=== PATIENT | female | born 1965 | race Caucasian/White ===

== ENCOUNTER 2022-11-27 12:31 | Outpatient (CLI) | payer OTHER, SELFPAY ==
--- NOTE | 2022-11-29 10:08 | WPDNEUROLOGY ---
Neurology EEG Report General Information Date of Study: 11/27/22 TEST EEG DIAGNOSIS cerebral aneurysm CONDITION OF RECORDING awake drowsy and sleep EEG NUMBER [id number] CLINICAL HISTORY patient has history of clipped aneurysm and needing a knee surgery followed with blood thinners. EEG DESCRIPTION basic resting occipital frequency consists of low to medium voltage 9 to 11 hertz per 2nd alpha. Low-voltage beta activity seen diffusely during drowsiness admixed with waxing and waning posterior alpha rhythm. Bilateral symmetrical sleep activity seen during sleep. Hyperventilation not done. Photic stimulation produced normal drive. IMPRESSION Normal record
== END 2022-11-27 12:32 | disposition home or self-care (01) ==
LOC: ANHNEURO 12:33
PROVIDERS: PCP Internal Medicine Infectious Disease; Visit Provider Psychiatry & Neurology Neurology
DX: I67.1 Cerebral aneurysm, nonruptured (principal)
CPT/HCPCS: 95816

== ENCOUNTER 2022-11-30 07:11 | Outpatient (CLI) | payer OTHER, SELFPAY ==
--- NOTE | ~2022-11-30 | CT_ITS ---
Non-contrast Head CT History: Aneurysm Technique: Axial non-contrast imaging of the brain was performed. Dose reduction technique was used on this scan by utilizing automated exposure control and iterative reconstruction technique. The dose -length product (DLP) was 605.33 mGy-cm. Findings: There is no evidence of intracranial hemorrhage, mass lesion, or acute infarct. Aneurysm c lips or coils are present at the anterior right [place] region.. The ventricles and subarac hnoid spaces are normal in size. Right frontal craniotomy noted. The visualized paranasal sinuses an d mastoid air cells are clear. Impression: No acute abnormality seen. Aneurysm clips or coils at the anterior right [place] region. Correlate with prior procedura l history. Reviewed, dictated and finalized at [facility]. 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 Aneurysm clips or coils at the anterior right [place] region. Correlat e with prior procedural history.
== END 2022-11-30 07:12 | disposition home or self-care (01) ==
PROVIDERS: PCP Internal Medicine Infectious Disease; Visit Provider Psychiatry & Neurology Neurology
DX: I67.1 Cerebral aneurysm, nonruptured (principal)
CPT/HCPCS: 70450

== ENCOUNTER 2024-09-29 09:34 | Outpatient (CLI) | payer OTHER, SELFPAY ==
--- NOTE | ~2024-09-29 | MMUS_ITS ---
EXAMINATION: MM diagnostic jing BI w guy, US breast BI complete HISTORY: Possible mass TECHNIQUE: 3-D tomosynthesis images of the breasts were performed and synthetic 2-D images were gener ated. CAD analysis was submitted and interpreted. High resolution complete bilateral breast ultrasoun d was performed. COMPARISON: 05/05/2024 BREAST PARENCHYMAL COMPOSITION:Not Dense. The breasts are almost entirely fatty FINDINGS: MAMMOGRAPHIC FINDINGS: Mammographic pattern of the breasts is unchanged. No mass lesion or distortion seen in either breast. No suspicious microcalcifications. ULTRASOUND: Sonographic imaging of both breasts demonstrates no solid or cystic lesion. No sonographic abnormalit y identified in either breast. IMPRESSION: No evidence for malignancy. No mass lesion seen. BI-RADS Category 1: Negative Reviewed, dictated and finalized at [facility]. IMPRESSION: No evidence for malignancy. No mass lesion seen. BI-RADS Category 1: Negative
== END 2024-09-29 09:35 | disposition home or self-care (01) ==
PROVIDERS: PCP Internal Medicine Infectious Disease; Visit Provider Surgery
DX: R92.8 Other abnormal and inconclusive findings on diagnostic imaging of breast (principal)
CPT/HCPCS: 76641; 77062; 77066; G0279

== ENCOUNTER 2024-12-14 17:37 | Emergency (ER) | payer OTHER, SELFPAY ==
--- NOTE | ~2024-12-14 | XR_ITS ---
CHEST RADIOGRAPH, PA AND LATERAL CLINICAL HISTORY: cough, wheezing . COMPARISON: 07/04/2009 TECHNIQUE: PA and lateral views of the chest. FINDINGS Hiatal hernia (versus left atrial enlargement within the retrocardiac region) for which cross-section al imaging would provide additional information, if the patient is clinically able. The remainder of the lungs are otherwise clear. IMPRESSION: Left atrial enlargement, without focal infiltrate or effusion. Hiatal hernia (versus left atrial enlargement within the retrocardiac region) for which cross-section al imaging would provide additional information, if the patient is clinically able. Reviewed, dictated and finalized at [facility] ER MACHINE IMPRESSION: Left atrial enlargement, without focal infiltrate or effusion. Hiatal hernia (versus left atrial enlargement within the retrocardiac region) f or which cross-sectional imaging would provide additional information, if the p atient is clinically able.
[2024-12-14 17:49] VITALS: BP 139/79; PULSE 88; RESP 22; TEMP 37.7; O2SAT 100
--- NOTE | 2024-12-14 17:50 | ED.URI ---
HPI - URI/Sore Throat General Chief Complaint: Upper Respiratory Infection Stated Complaint: Diarrhea/SOB Time Seen by Provider: 12/14/24 17:40 Source: patient Mode of arrival: ambulatory Limitations: no limitations History of Present Illness HPI Narrative: Patient is a 59-year-old female who presents with 4 days of cough, shortness of breath on exertion, intermittent abdominal pain, diarrhea and body aches. Patient took at home flu and COVID tests and they were both negative. Denies any fever, chills, nausea, vomiting. Patient has history of asthma and bronchitis. Has been taking [id number] medication with no relief. Related Data Home Medications ?Medication ?Instructions ?Recorded ?Confirmed ?Last Taken ?Type albuterol sulfate 90 mcg/actuation 1 puff inhalation Q4H PRN 11/16/22 Unknown History aerosol inhaler amlodipine 10 mg tablet 10 mg PO DAILY 11/16/22 Unknown History bictegravir 30 mg-emtricitabine 1 tablet PO DAILY 11/16/22 Unknown History 120 mg-tenofovir alafenam 15 mg tablet (Biktarvy) bupropion HCl 300 mg 24 hr tablet, 300 mg PO DAILY 11/16/22 Unknown History extended release clonazepam 2 mg tablet 1 mg PO TID 11/16/22 Unknown History fluoxetine 40 mg capsule 40 mg PO DAILY 11/16/22 Unknown History hydrochlorothiazide 25 mg tablet 25 mg PO DAILY 11/16/22 Unknown History lansoprazole 30 mg capsule,delayed 30 mg PO DAILY 11/16/22 Unknown History release losartan 50 mg tablet 50 mg PO DAILY 11/16/22 Unknown History rosuvastatin 20 mg tablet 20 mg PO DAILY 11/16/22 Unknown History trazodone 150 mg tablet 150 mg PO QHS 11/16/22 Unknown History Allergies Allergy/AdvReac Type Severity Reaction Status Date / Time No Known Allergies Allergy Unverified 10/13/24 11:25 Review of Systems Review of Systems: All systems reviewed & are unremarkable except as noted in HPI and below Constitutional: Constitutional: Reports body ache(s), Denies chills, Reports fatigue, Denies fever(s), Reports headache(s), Denies malaise and Denies weakness Eyes: Eyes: Denies blurry vision, Denies itchy eyes and Denies loss of vision ENT: Denies otalgia, Reports headache(s), Reports nasal congestion, Denies sinus pain and Denies sore throat Cardiovascular: Cardiovascular: Denies chest pain, Denies irregular heart rhythm and Denies dyspnea Respiratory: Respiratory: Reports cough and Denies dyspnea Gastrointestinal: Gastrointestinal: Denies abdominal pain, Denies diarrhea, Denies nausea and Denies vomiting Musculoskeletal: Musculoskeletal: Denies back pain, Denies myalgias and Denies arthralgias Integumentary/Breasts: Skin/Breast: Denies pruritus and Denies rash Neurologic: Denies headache(s), Denies loss of vision and Denies weakness Psychiatric: Psychiatric: Reports no additional psychiatric complaints Endocrine: Endocrine: Denies fatigue Allergic/Immunologic: Allergic/Immunologic: Denies itchy eyes PMFSH Past Medical History Medical History HIV (human immunodeficiency virus infection) Colostomy in place Brain aneurysm Diverticulitis Headache GERD (gastroesophageal reflux disease) Arthritis Anxiety Surgical History Surgical History H/O brain surgery History of surgery on arm Family History Family History Other Anxiety Cerebrovascular accident Depression Rectal cancer Social History Social History Smoking status: Unknown if ever smoked Alcohol intake: current Substance use: current Substance use type: marijuana Do You Feel Safe in your Home?: Yes Lack of Transportation: YES Lack of Food: Sometimes True Current Housing: I Have Housing Concerned About Future Housing: No Difficulty Paying Gas/Electric Bills: No Difficulty Paying for Meds: No Currently Unemployed: No Education: Trade/Vocational Certificate Difficulty w/ Childcare or Family Care: No Comments At time of signature, agree with nursing past medical, surgical, social and family history. There is no relevant family history pertinent to the presenting complaint. Exam Const: General: cooperative, healthy appearing, comfortable, no acute distress and well nourished Nutritional Appearance: well nourished Orientation/consciousness: patient oriented x3 Limitations: no limitations HENMT: Head: normal to inspection, normocephalic and atraumatic Ears: hearing grossly normal bilaterally, external ears normal, TM's normal bilaterally, EAC's normal and no periauricular adenopathy Face/Nose/Sinus: Normal external nose present, Normal nasal mucous membranes and turbinates present, normal facial exam, sinuses nontender and face symmetric Face and sinus: normal facial exam, sinuses nontender and face symmetric Mouth: Yes Normal oral and palatal mucosa present, Yes lip normal, Yes tongue normal, Yes Normal salivary glands and ducts present, Yes oropharynx normal and Yes moist mucous membranes Teeth and gingiva: dentition normal Throat: posterior oropharynx normal, tonsils normal and uvula midline Eyes: General: appearance normal, both eyes and all related structures Alignment and Position: alignment normal and position normal Periorbital: periorbital findings normal Eyelids: eyelids normal Pupils: Equal, round and reactive pupils present Neck: Neck: normal visual inspection, full ROM, no lymphadenopathy and supple Chest: Chest palpation & inspection: normal inspection of the chest and normal palpation of entire chest wall Resp: Effort & Inspection: normal respiratory effort and able to speak in complete sentences Auscultation: no crackles, no rales, rhonchi throughout and no wheezes Cardio: Rate: regular rate Rhythm: regular rhythm Heart sounds: S1 normal heart sound present and S2 normal heart sound present GI: Inspection: normal to inspection Skin: General skin exam: normal color and no rashes or lesions noted Neuro: General: patient oriented x3 and moves all extremities Cranial nerves: Yes Equal, round and reactive pupils present Speech: normal speech Gait exam (Neuro): Normal gait present Extrem: General: normal to inspection, full ROM and no edema Psych: Appearance: grossly normal and well kempt Mental Status: mental status grossly normal Speech and movement: Normal speech and movement present Affect: normal affect Attitude: cooperative Thought process: Normal thought process present Course Course Emergency Course: Discharge instructions reviewed with patient, as well as provided in writing per nursing staff. The instructions also include specific and strict return/GO TO THE ER as well as f/u information. All questions have been answered, and the patient deny any further questions with discharge and discharge plan. Portions of this record may have been created with voice recognition software Level of Care: Express Care Visit Vital Signs Vital signs: Reviewed MDM - URI/Sore Throat MDM Narrative Medical decision making narrative: Discussed x-ray results with patient. Patient to follow-up with primary for additional imaging. Pt well hydrated appearing, in no respiratory distress, hemodynamically stable. Recommend supportive care. The patient is stable at time of discharge the clinical impression was discussed and the patient was given the opportunity to ask questions, which were addressed as completely as possible given the information available at present. Anticipatory guidance and return to care precautions were discussed and the importance of primary care follow-up was stressed and encouraged. The patient voiced understanding of the plan, indications to return, and the need for follow-up. Differential diagnosis considered: Pascual virus, strep pharyngitis, allergic rhinitis, upper respiratory tract infection, sinusitis, rhinosinusitis, nasopharyngitis. viral pharyngitis, otitis media, otitis externa, otitis effusion, foreign body, cerumen impaction, viral syndrome, and influenza.? Exam findings show no acute concerns or changes; patient is non-toxic appearing and is in no distress.? Patient is appropriate for outpatient treatment and follow-up.? Medical Records Attestation: I reviewed the patient's medical records. Imaging Data Radiologist's impression: CHEST RADIOGRAPH, PA AND LATERAL CLINICAL HISTORY: cough, wheezing . COMPARISON: 07/04/2009 TECHNIQUE: PA and lateral views of the chest. FINDINGS Hiatal hernia (versus left atrial enlargement within the retrocardiac region) for which cross-sectional imaging would provide additional information, if the patient is clinically able. The remainder of the lungs are otherwise clear. IMPRESSION: Left atrial enlargement, without focal infiltrate or effusion. Hiatal hernia (versus left atrial enlargement within the retrocardiac region Discharge Plan Discharge Clinical Impression: Acute purulent bronchitis Patient Disposition: Home, Self-Care Condition: Stable Instructions: Antibiotic Form Additional Instructions: X-ray showed no signs of pneumonia. Take antibiotic as prescribed. Take steroids in the morning with food. Use Tessalon Perles as needed for cough. Use inhaler with spacer as needed. Other symptomatic treatments include: -Alternate Tylenol and Motrin per package directions for fever or pain. -Antihistamine medication such as Benadryl at night and Zyrtec/Claritin/Klarissa during the day can help improve symptoms. -Use Flonase twice a day for 5 days then daily to help reduce the inflammation and dry up your sinuses. -You can also use Sudafed or Mucinex. Be sure to drink plenty of water with these medications at least 8 ounces with every dose and it is important to drink 8 to 10 glasses of water per day. Water is a natural decongestant -Eat and drink things that are easy to swallow, like tea or soup, or popsicles. -Oral rinses such as: Salt water gargles and/or may use topical anesthetic (eg. Chloraseptic spray) or lozenges to relieve dryness or throat pain). -Frequent hand washing or hand soa integration developer is one of the best ways to prevent spread of infection. -Using a vaporizer or humidifier at night will also help thin secretions and help with coughing up phlegm. -Follow up with primary care provider in 3-5 days if condition is not improving - For new or worsening symptoms go directly to the nearest ER Patient Language: Romanian Prescriptions: New promethazine-DM 6.25-15 mg/5 mL syrup 5 ml PO Q4-6H PRN (Reason: cough) Qty: 118 0RF prednisone 20 mg tablet 40 mg PO DAILY 5 Days Qty: 10 0RF amoxicillin 875 mg tablet 875 mg PO Q12H 7 Days Qty: 14 0RF albuterol sulfate 90 mcg/actuation HFA aerosol inhaler 2 puff inhalation QID PRN (Reason: shortness of breath or wheezing) Qty: 6.7 0RF (DME) Aerochamber MV Spacer See Rx Instructions .Route Qty: 1 0RF Rx Instructions: As directed No Action clonazepam 2 mg tablet 1 mg PO TID trazodone 150 mg tablet 150 mg PO QHS fluoxetine 40 mg capsule 40 mg PO DAILY bupropion HCl 300 mg tablet extended release 24 hr 300 mg PO DAILY losartan 50 mg tablet 50 mg PO DAILY Biktarvy 30-120-15 mg tablet 1 tablet PO DAILY amlodipine 10 mg tablet 10 mg PO DAILY rosuvastatin 20 mg tablet 20 mg PO DAILY lansoprazole 30 mg capsule,delayed release(DR/EC) 30 mg PO DAILY hydrochlorothiazide 25 mg tablet 25 mg PO DAILY albuterol sulfate 90 mcg/actuation HFA aerosol inhaler 1 puff inhalation Q4H PRN Follow-up/Referrals: Sonia,Bong Marie [Primary Care Provider] - 3 Days Stand Alone Forms: Work/School Release IP Time of Disposition: 19:01
[2024-12-14] MEDS: IPRATROPIUM 0.5 MG/ALBUTEROL SULFATE 2.5 MG AMPUL.NEB 3 ML INHALATION (18:21)
== END 2024-12-14 19:15 | disposition home or self-care (01) ==
PROVIDERS: Emergency Provider Nurse Practitioner Family; PCP Internal Medicine Infectious Disease
DX: J20.9 Acute bronchitis, unspecified (principal); Z21 Asymptomatic human immunodeficiency virus [HIV] infection status; K21.9 Gastro-esophageal reflux disease without esophagitis; M19.90 Unspecified osteoarthritis, unspecified site; J45.909 Unspecified asthma, uncomplicated
CPT/HCPCS: 71046; 94640; 99213; G0463

== ENCOUNTER 2025-03-22 13:59 | Emergency (ER) | payer OTHER, SELFPAY ==
--- NOTE | 2025-03-22 14:03 | ED.URI ---
HPI - URI/Sore Throat General Chief Complaint: Upper Respiratory Infection Stated Complaint: Cough/Wheezing Time Seen by Provider: 03/22/25 14:21 Source: patient and RN notes reviewed Mode of arrival: ambulatory Limitations: no limitations History of Present Illness HPI Narrative: 59-year-old female presents with concern for 9 day history of cough, wheezing. Reports the cough is productive. Reports that worsens overnight. Reports she feels sweats at night has been taking Tylenol. She has been using her albuterol about 3 times daily. MD elicited complaint: cough Related Data Home Medications ?Medication ?Instructions ?Recorded ?Confirmed ?Last Taken ?Type albuterol sulfate 90 mcg/actuation 1 puff inhalation Q4H PRN 11/16/22 Unknown History aerosol inhaler amlodipine 10 mg tablet 10 mg PO DAILY 11/16/22 Unknown History bictegravir 30 mg-emtricitabine 1 tablet PO DAILY 11/16/22 Unknown History 120 mg-tenofovir alafenam 15 mg tablet (Biktarvy) bupropion HCl 300 mg 24 hr tablet, 300 mg PO DAILY 11/16/22 Unknown History extended release clonazepam 2 mg tablet 1 mg PO TID 11/16/22 Unknown History fluoxetine 40 mg capsule 40 mg PO DAILY 11/16/22 Unknown History hydrochlorothiazide 25 mg tablet 25 mg PO DAILY 11/16/22 Unknown History lansoprazole 30 mg capsule,delayed 30 mg PO DAILY 11/16/22 Unknown History release losartan 50 mg tablet 50 mg PO DAILY 11/16/22 Unknown History rosuvastatin 20 mg tablet 20 mg PO DAILY 11/16/22 Unknown History trazodone 150 mg tablet 150 mg PO QHS 11/16/22 Unknown History Allergies Allergy/AdvReac Type Severity Reaction Status Date / Time No Known Allergies Allergy Unverified 10/13/24 11:25 Review of Systems Review of Systems: CONSTITUTIONAL: Reports malaise, chills, sweats EYES: Denies visual changes, redness, or discharge. ENT: Reports rhinorrhea, congestion. Denies sinus pain, otalgia and sore throat. CARDIOVASCULAR: Denies chest pain, palpitations, or edema. RESPIRATORY: Reports productive cough, wheezing, dyspnea. GASTROINTESTINAL: Denies abdominal pain, nausea, vomiting, diarrhea SKIN: Denies rash or itching. MUSCULOSKELETAL: Reports myalgia. NEUROLOGIC: Denies headache. All systems reviewed & are unremarkable except as noted in HPI and below PMFSH Past Medical History Medical History HIV (human immunodeficiency virus infection) Colostomy in place Brain aneurysm Diverticulitis Headache GERD (gastroesophageal reflux disease) Arthritis Anxiety Surgical History Surgical History H/O brain surgery History of surgery on arm Family History Family History Other Anxiety Cerebrovascular accident Depression Rectal cancer Social History Social History Smoking status: Unknown if ever smoked Alcohol intake: current Substance use: current Substance use type: marijuana Do You Feel Safe in your Home?: Yes Lack of Transportation: YES Lack of Food: Sometimes True Current Housing: I Have Housing Concerned About Future Housing: No Difficulty Paying Gas/Electric Bills: No Difficulty Paying for Meds: No Currently Unemployed: No Education: Trade/Vocational Certificate Difficulty w/ Childcare or Family Care: No Comments At time of signature, agree with nursing past medical, surgical, social and family history. There is no relevant family history pertinent to the presenting complaint Exam Narrative: GENERAL: Nontoxic-appearing, well-nourished, and in no acute distress. HEAD: Normocephalic EYES: PERRLA, conjunctivae clear ENT: Nares clear. Mucous membranes moist. TM pearly rai with dull light reflex bilaterally; no tragal tenderness. Oropharynx not erythematous without lesions. Tonsils not enlarged and without exudate, no drooling, no hoarseness, no trismus, uvula midline. NECK: Supple. No lymphadenopathy CHEST: Scattered expiratory and expiratory wheeze, breath sounds equal. No rhonchi, rales, or stridor. No respiratory distress, speaks in full sentences. HEART: Regular rate and rhythm. No murmur heard. SKIN: Warm, dry, no rash. NEURO: Alert and oriented x3. PSYCH: Normal mood and affect Course Course Emergency Course: Patient is aware of diagnosis, understands and agrees to treatment plan. Anticipatory guidance given. Patient agrees to follow-up as directed and is aware of reasons to seek care at the emergency department. Portions of this record may have been created with voice recognition software Level of Care: Express Care Visit Vital Signs Vital signs: Reviewed. MDM - URI/Sore Throat MDM Narrative Medical decision making narrative: Differential diagnosis considered: Pascual virus, strep pharyngitis, allergic rhinitis, upper respiratory tract infection, sinusitis, rhinosinusitis, nasopharyngitis. viral pharyngitis, otitis media, otitis externa, pneumonia, bronchitis, viral cough syndrome, viral syndrome, and influenza. Exam findings show no acute concerns or changes; patient is non-toxic appearing and is in no distress. Patient is appropriate for outpatient treatment and follow-up. Lab Data Attestation: I reviewed the patient's lab results. Critical Care Time Critical Care Time Critical Care Time: No Discharge Plan Discharge Clinical Impression: Lower respiratory tract infection Patient Disposition: Home Condition: Stable Instructions: Antibiotic Form, Acute Cough (ED) Additional Instructions: Take medication as prescribed Recommend antihistamine such as Benadryl at night time and Zyrtec or Klarissa during the day Continue to Use your inhaler as needed for cough, wheezing, shortness of breath or chest tightness. Also, recommend symptomatic treatment includes: rest, fluids, and increase humidity of the air at home. Recommend Acetaminophen as directed on the bottle to reduce fever, pain, headache. Avoid smoking/second-hand smoke. Please schedule a follow-up visit with your personal physician for further evaluation and treatment within 3-5days. If your symptoms persist, change or worsen significantly before you can contact your personal physician then please, without delay, go to the emergency department for further evaluation. Patient Language: Polish Prescriptions: New azithromycin [Zithromax Z-Dhiraj] 250 mg tablet See Rx Instructions .ROUTE .COMPLEX Qty: 6 0RF Rx Instructions: take 500 mg today (day 1), then 250 mg for 4 days (days 2-5) methylprednisolone [Medrol (Dhiraj)] 4 mg tablets,dose pack See Rx Instructions .ROUTE .COMPLEX Qty: 21 0RF Rx Instructions: orally per package directions No Action promethazine-DM 6.25-15 mg/5 mL syrup 5 ml PO Q4-6H PRN (Reason: cough) Qty: 118 0RF prednisone 20 mg tablet 40 mg PO DAILY 5 Days Qty: 10 0RF amoxicillin 875 mg tablet 875 mg PO Q12H 7 Days Qty: 14 0RF albuterol sulfate 90 mcg/actuation HFA aerosol inhaler 2 puff inhalation QID PRN (Reason: shortness of breath or wheezing) Qty: 6.7 0RF (DME) Aerochamber MV Spacer See Rx Instructions .Route Qty: 1 0RF Rx Instructions: As directed clonazepam 2 mg tablet 1 mg PO TID trazodone 150 mg tablet 150 mg PO QHS fluoxetine 40 mg capsule 40 mg PO DAILY bupropion HCl 300 mg tablet extended release 24 hr 300 mg PO DAILY losartan 50 mg tablet 50 mg PO DAILY Biktarvy 30-120-15 mg tablet 1 tablet PO DAILY amlodipine 10 mg tablet 10 mg PO DAILY rosuvastatin 20 mg tablet 20 mg PO DAILY lansoprazole 30 mg capsule,delayed release(DR/EC) 30 mg PO DAILY hydrochlorothiazide 25 mg tablet 25 mg PO DAILY albuterol sulfate 90 mcg/actuation HFA aerosol inhaler 1 puff inhalation Q4H PRN Follow-up/Referrals: Jemima,Bong Marie [Primary Care Provider] - Time of Disposition: 14:28
[2025-03-22 14:06] VITALS: BP 130/81; PULSE 77; RESP 19; TEMP 37; O2SAT 97
== END 2025-03-22 14:35 | disposition home or self-care (01) ==
PROVIDERS: Emergency Provider Nurse Practitioner; PCP Internal Medicine Infectious Disease
DX: J22 Unspecified acute lower respiratory infection (principal); B20 Human immunodeficiency virus [HIV] disease; K21.9 Gastro-esophageal reflux disease without esophagitis; M19.90 Unspecified osteoarthritis, unspecified site
CPT/HCPCS: 99213; G0463

== ENCOUNTER 2025-07-12 11:49 | Emergency (ER) | payer OTHER, SELFPAY ==
[2025-07-12 11:57] VITALS: BP 147/82; PULSE 67; RESP 16; TEMP 36.4; O2SAT 95
--- NOTE | 2025-07-12 12:15 | ED_ITS ---
HPI - Skin/Abscess/Foreign Bdy General Chief complaint: Skin/Abscess/Foreign Body Stated complaint: Rash Time Seen by Provider: 07/12/25 12:15 Source: patient, RN notes reviewed and old records reviewed Mode of arrival: ambulatory Limitations: no limitations History of Present Illness HPI narrative: 60-year-old female presents to the [facility] with complaints of a rash. Rash to the left chest area, states it has been there for 6 weeks. Have been trying use Lotrimin, cortisone cream with no relief. Area is skin color. Patient chin reports it is being very itchy. Denies any new creams ointments lotions detergents. Onset (ago): week(s) (6) Treatments prior to arrival: OTC topical medication Related Data Home Medications ?Medication ?Instructions ?Recorded ?Confirmed ?Last Taken ?Type albuterol sulfate 90 mcg/actuation 1 puff inhalation Q4H PRN 11/16/22 Unknown History aerosol inhaler amlodipine 10 mg tablet 10 mg PO DAILY 11/16/22 Unknown History bictegravir 30 mg-emtricitabine 1 tablet PO DAILY 11/16/22 Unknown History 120 mg-tenofovir alafenam 15 mg tablet (Biktarvy) bupropion HCl 300 mg 24 hr tablet, 300 mg PO DAILY 11/16/22 Unknown History extended release clonazepam 2 mg tablet 1 mg PO TID 11/16/22 Unknown History fluoxetine 40 mg capsule 40 mg PO DAILY 11/16/22 Unknown History hydrochlorothiazide 25 mg tablet 25 mg PO DAILY 11/16/22 Unknown History lansoprazole 30 mg capsule,delayed 30 mg PO DAILY 11/16/22 Unknown History release losartan 50 mg tablet 50 mg PO DAILY 11/16/22 Unknown History rosuvastatin 20 mg tablet 20 mg PO DAILY 11/16/22 Unknown History trazodone 150 mg tablet 150 mg PO QHS 11/16/22 Unknown History Allergies Allergy/AdvReac Type Severity Reaction Status Date / Time No Known Allergies Allergy Unverified 07/12/25 12:31 Review of Systems 2 Review of Systems: All systems reviewed & are unremarkable except as noted in HPI and below Constitutional: Constitutional: Reports no additional constitutional complaints ENT: Reports system reviewed and no additional complaints, except as documented Cardiovascular: Cardiovascular: Reports no additional cardiovascular complaints, Denies chest pain and Denies dyspnea Respiratory: Respiratory: Reports no additional respiratory complaints, Denies chest congestion, Denies cough and Denies dyspnea Musculoskeletal: Musculoskeletal: Reports no additional musculoskeletal complaints Integumentary/Breasts: Skin/Breast: Reports rash PMFSH Past Medical History Medical History HIV (human immunodeficiency virus infection) Colostomy in place Brain aneurysm Diverticulitis Headache GERD (gastroesophageal reflux disease) Arthritis Anxiety Surgical History Surgical History H/O brain surgery History of surgery on arm Family History Family History Other Anxiety Cerebrovascular accident Depression Rectal cancer Social History Social History Smoking status: Unknown if ever smoked Alcohol intake: current Substance use: current Substance use type: marijuana Do You Feel Safe in your Home?: Yes Lack of Transportation: YES Lack of Food: Sometimes True Current Housing: I Have Housing Concerned About Future Housing: No Difficulty Paying Gas/Electric Bills: No Difficulty Paying for Meds: No Currently Unemployed: No Education: Trade/Vocational Certificate Difficulty w/ Childcare or Family Care: No Comments At the time of my signature, I reviewed and agree with the nursing past medical, surgical, social, and family history. There is no relevant family history pertinent to the patient complaint. Exam 2 Const: General: cooperative, healthy appearing, comfortable, no acute distress, well developed, alert and well nourished Nutritional Appearance: w ell nourished Orientation/consciousness: patient oriented x3 Limitations: no limitations HENMT: Head: normal to inspection Eyes: General: appearance normal, both eyes and all related structures A lignment and Position: alignment normal Neck: Neck: normal visual inspection, full ROM, no lymphadenopathy and no meningeal signs Chest: Chest palpation & inspection: normal inspection of the chest Resp: Effort & Inspection: normal respiratory effort and able to speak in complete sentences Cardio: Rate: regular rate Skin: General skin exam: normal color and no rashes or lesions noted Full body images: 1. apx 3x3 cm skin colored raised area. No fascicular changes, no erythema. Not warm to touch. Neuro: General: patient oriented x3, gait normal, moves all extremities and no meningeal signs Cognition (Neuro): normal cognition Speech: normal speech Gait exam (Neuro): Normal gait present Extrem: General: normal to inspection, full ROM, capillary refill normal and normal gait Psych: Appearance: grossly normal and well kempt Mental Status: mental status grossly normal Speech and movement: Normal speech and movement present and Clear speech present Affect: normal affect Attitude: cooperative Course Course Level of Care: Express Care Visit Vital Signs Vital signs: Vital Signs Temperature 97.5 F L 07/12/25 11:57 Pulse Rate 67 07/12/25 11:57 Respiratory Rate 16 07/12/25 11:57 Blood Pressure 147/82 H 07/12/25 11:57 Pulse Oximetry 95 07/12/25 11:57 Oxygen Delivery Room Air 07/12/25 11:57 Temperature 97.5 F L 07/12/25 11:57 Pulse Rate 67 07/12/25 11:57 Respiratory Rate 16 07/12/25 11:57 Blood Pressure 147/82 H 07/12/25 11:57 Pulse Oximetry 95 07/12/25 11:57 Oxygen Delivery Room Air 07/12/25 11:57 Reviewed MDM - Skin/Abscess/Foreign Bdy MDM Narrative Medical decision making narrative: Patient sitting in exam room. Patient is nontoxic, vitals stable. Patient presents with a rash to the left chest. Has tried multiple [id number] treatments No cellulitic changes Rash x6 weeks, will attempt triamcinolone, instructed patient to follow-up with primary care provider Patient is appropriate for outpatient treatment with close follow-up Discharge instructions reviewed with patient, as well as provided in writing per nursing staff. The instructions also include specific and strict return/GO TO THE ER as well as f/u information. All questions have been answered, and the patient deny any further questions with discharge and discharge plan. Some parts of this dictation were generated by voice recognition software and may contain typographical and/or grammatical inaccuracies. Differential Diagnosis Differential diagnosis: Likely abscess of skin or subcutaneous tissue, viral exanthem, urticaria, herpes zoster, allergic reaction to drug, cellulitis, eczema, insect bites and contact dermatitis Critical Care Time Critical Care Time Critical Care Time: No Discharge Plan Discharge Clinical Impression: Localized rash Patient Disposition: Home Condition: Stable Instructions: Acute Rash (ED) Additional Instructions: The most important part of your care is follow up with Primary care provider. Today your blood pressure was 147/82 Take Zyrtec or Claritin every day Take Pepcid 20mg daily for 7 days Apply the steroid cream twice daily for 1 week Avoid hot showers, Take cool showers. Hot showers will make rashes worse Apply cool compresses every 2-3 hours for 15 minutes Go to the ER for new or worsening symptoms such as shortness of breath. Patient Language: Japanese Prescriptions: New triamcinolone acetonide 0.1 % cream 1 applic topical BID Qty: 30 0RF No Action prednisone 20 mg tablet 40 mg PO DAILY 5 Days Qty: 10 0RF amoxicillin 875 mg tablet 875 mg PO Q12H 7 Days Qty: 14 0RF albuterol sulfate 90 mcg/actuation HFA aerosol inhaler 2 puff inhalation QID PRN (Reason: shortness of breath or wheezing) Qty: 6.7 0RF (DME) Aerochamber MV Spacer See Rx Instructions .Route Qty: 1 0RF Rx Instructions: As directed clonazepam 2 mg tablet 1 mg PO TID trazodone 150 mg tablet 150 mg PO QHS fluoxetine 40 mg capsule 40 mg PO DAILY bupropion HCl 300 mg tablet extended release 24 hr 300 mg PO DAILY losartan 50 mg tablet 50 mg PO DAILY Biktarvy 30-120-15 mg tablet 1 tablet PO DAILY amlodipine 10 mg tablet 10 mg PO DAILY rosuvastatin 20 mg tablet 20 mg PO DAILY lansoprazole 30 mg capsule,delayed release(DR/EC) 30 mg PO DAILY hydrochlorothiazide 25 mg tablet 25 mg PO DAILY albuterol sulfate 90 mcg/actuation HFA aerosol inhaler 1 puff inhalation Q4H PRN Follow-up/Referrals: Jemima,Bong Marie [Primary Care Provider] - 1 Week ([facility] follow-up) Time of Disposition: 12:30
== END 2025-07-12 12:47 | disposition home or self-care (01) ==
PROVIDERS: Emergency Provider Nurse Practitioner; PCP Internal Medicine Infectious Disease
DX: R21 Rash and other nonspecific skin eruption (principal); F12.90 Cannabis use, unspecified, uncomplicated; Z21 Asymptomatic human immunodeficiency virus [HIV] infection status; I67.1 Cerebral aneurysm, nonruptured; K21.9 Gastro-esophageal reflux disease without esophagitis; M19.90 Unspecified osteoarthritis, unspecified site; F41.9 Anxiety disorder, unspecified
CPT/HCPCS: 99213; G0463

== ENCOUNTER 2025-09-01 16:36 | Emergency (ER) | payer OTHER, SELFPAY ==
--- NOTE | 2025-09-01 16:39 | ED_ITS ---
HPI - Skin/Abscess/Foreign Bdy General Chief complaint: Wound/Laceration Stated complaint: need stiches removed Time Seen by Provider: 09/01/25 16:40 Source: patient Mode of arrival: ambulatory Limitations: no limitations History of Present Illness HPI narrative: Patient is a 60-year-old female presenting for suture removal. Patient had 5 sutures placed 11 days ago at [place] emergency department. Patient was also given Keflex at that time. Patient has had no drainage or issues with sutures Related Data Home Medications ?Medication ?Instructions ?Recorded ?Confirmed ?Last Taken ?Type amlodipine 10 mg tablet 10 mg PO DAILY 11/16/22 Unk nown History bictegravir 30 mg-emtricitabine 1 tablet PO DAILY 11/01 05/23 Unknown History 120 mg-tenofovir alafenam 15 mg tablet (Biktarvy) bupropion HCl 300 mg 24 hr tablet, 300 mg PO DAILY Unknown History extended release clonazepam 2 mg tablet 1 mg PO TID 11/16/22 Unknow n History fluoxetine 40 mg capsule 40 mg PO DAILY 11/16/22 Unk nown History hydrochlorothiazide 25 mg tablet 25 mg PO DAILY Unknown History lansoprazole 30 mg capsule,delayed 30 mg PO DAILY 11/01 05/23 Unknown History release losartan 50 mg tablet 50 mg PO DAILY 11/16/22 Unk nown History rosuvastatin 20 mg tablet 20 mg PO DAILY 11/16/22 Unk nown History trazodone 150 mg tablet 150 mg PO QHS 11/16/22 Unkn own History Allergies Allergy/AdvReac Type Severity Reaction Status Date / Time No Known Allergies Allergy Verified 09/01/25 16:38 Review of Systems 2 Review of Systems: All systems reviewed & are unremarkable except as noted in HPI and below Constitutional: Constitutional: Denies body ache(s), Denies chills, Denies fatigue, Denies fever(s), Denies headache(s), Denies malaise and Denies weakness Eyes: Eyes: Denies blurry vision, Denies irritation and Denies loss of vision ENT: Denies otalgia, Denies headache(s), Denies nasal discharge, Denies sinus pain and Denies sore throat Cardiovascular: Cardiovascular: Denies chest pain, Denies irregular heart rhythm and Denies dyspnea Respiratory: Respiratory: Denies dyspnea Gastrointestinal: Gastrointestinal: Denies abdominal pain, Denies melena, Denies hematochezia, Denies diarrhea, Denies nausea and Denies vomiting Musculoskeletal: Musculoskeletal: Denies back pain, Denies myalgias and Denies arthralgias Integumentary/Breasts: Skin/Breast: Denies pruritus, Denies rash and Reports wounds Neurologic: Denies headache(s), Denies loss of vision and Denies weakness Psychiatric: Psychiatric: Reports no additional psychiatric complaints Endocrine: Endocrine: Denies fatigue PMFSH Past Medical History Medical History HIV (human immunodeficiency virus infection) Colostomy in place Brain aneurysm Diverticulitis Headache GERD (gastroesophageal reflux disease) Arthritis Anxiety Surgical History Surgical History H/O brain surgery History of surgery on arm Family History Family History Other Anxiety Cerebrovascular accident Depression Rectal cancer Social History Social History Smoking status: Unknown if ever smoked Alcohol intake: current Substance use: current Substance use type: marijuana Do You Feel Safe in your Home?: Yes Lack of Transportation: YES Lack of Food: Sometimes True Current Housing: I Have Housing Concerned About Future Housing: No Difficulty Paying Gas/Electric Bills: No Difficulty Paying for Meds: No Currently Unemployed: No Education: Trade/Vocational Certificate Difficulty w/ Childcare or Family Care: No Comments At time of signature, agree with nursing past medical, surgical, social and family history. There is no relevant family history pertinent to the presenting complaint. Exam 2 Const: General: cooperative, healthy appearing, comfortable, no acute distress and well nourished Nutritional Appearance: well nourished O rientation/consciousness: patient oriented x3 Limitations: no limitations HENMT: Head: normal to inspection, normocephalic and atraumatic Ears: h earing grossly normal bilaterally and external ears normal Face/Nose/Sinus: N ormal external nose present, normal facial exam and face symmetric Face and sinus: normal facial exam and face symmetric Mouth: Yes lip normal Eyes: General: appearance normal, both eyes and all related structures A lignment and Position: alignment normal and position normal Periorbital: p eriorbital findings normal Eyelids: eyelids normal Pupils: Equal, round and reactive pupils present EOM: EOMs intact bilaterally Neck: Neck: normal visual inspection, full ROM and supple Chest: Chest palpation & inspection: normal inspection of the chest Resp: Effort & Inspection: normal respiratory effort and able to speak in complete sentences Auscultation: clear to auscultation bilaterally Cardio: Rate: regular rate Rhythm: regular rhythm Heart sounds: S1 normal heart sound present and S2 normal heart sound present GI: Inspection: normal to inspection Skin: General skin exam: normal color and no rashes or lesions noted Neuro: General: patient oriented x3 and moves all extremities Cranial nerves: Yes Equal, round and reactive pupils present Speech: normal speech Gait exam (Neuro): Normal gait present Extrem: General: normal to inspection, full ROM and no edema Ankle/foot/toe images: 1. 5 sutures present. Wound is well approximated and healing appropriately Psych: Appearance: grossly normal and well kempt Mental Status: mental status grossly normal Speech and movement: Normal speech and movement present Affect: normal affect Attitude: cooperative Thought process: Normal thought process present Course Course Emergency Course: Patient is aware of diagnosis, understands and agrees to treatment plan. Anticipatory guidance given. Patient agrees to follow-up as directed and is aware of reasons to seek care at the emergency department. Portions of this record may have been created with voice recognition software Level of Care: Express Care Visit Vital Signs Vital signs: Reviewed MDM - Skin/Abscess/Foreign Bdy MDM Narrative Medical decision making narrative: Five sutures removed Pt well hydrated appearing, in no respiratory distress, hemodynamically stable. Recommend supportive care. The patient is stable at time of discharge the clinical impression was discussed and the patient was given the opportunity to ask questions, which were addressed as completely as possible given the information available at present. Anticipatory guidance and return to care precautions were discussed and the importance of primary care follow-up was stressed and encouraged. The patient voiced understanding of the plan, indications to return, and the need for follow-up. Exam findings show no acute concerns or changes Patient is appropriate for outpatient treatment and follow-up. Differential Diagnosis Differential diagnosis: Likely cellulitis and other (Suture removal) Medical Records Attestation: I reviewed the patient's medical records. Discharge Plan Discharge Clinical Impression: Visit for suture removal Patient Disposition: Home Condition: Stable Instructions: Laceration (ED) Additional Instructions: AFTER the stitches are removed: Clean your wound as directed. Carefully wash your wound with soap and water. Pat the area dry with a clean towel. Protect your wound. Your wound can swell, bleed, or split open if it is stretched or bumped. You may need to wear a bandage that supports your wound until it is completely healed. How to minimize a scar: After sutures are removed, keep your scar out of the sun. Use sunblock if your wound is exposed to the sun. You may use OTC silicone pad and/or scar massage with ointment (for 10-15 min a day) after one month. Talk to your doctor if you think you are developing a keloid. Patient Language: Cambodian Prescriptions: No Action prednisone 20 mg tablet 40 mg PO DAILY 5 Days Qty: 10 0RF amoxicillin 875 mg tablet 875 mg PO Q12H 7 Days Qty: 14 0RF albuterol sulfate 90 mcg/actuation HFA aerosol inhaler 2 puff inhalation QID PRN (Reason: shortness of breath or wheezing) Qty: 6.7 0RF (DME) Aerochamber MV Spacer See Rx Instructions .Route Qty: 1 0RF Rx Instructions: As directed triamcinolone acetonide 0.1 % cream 1 applic topical BID Qty: 30 0RF clonazepam 2 mg tablet 1 mg PO TID trazodone 150 mg tablet 150 mg PO QHS fluoxetine 40 mg capsule 40 mg PO DAILY bupropion HCl 300 mg tablet extended release 24 hr 300 mg PO DAILY losartan 50 mg tablet 50 mg PO DAILY Biktarvy 30-120-15 mg tablet 1 tablet PO DAILY amlodipine 10 mg tablet 10 mg PO DAILY rosuvastatin 20 mg tablet 20 mg PO DAILY lansoprazole 30 mg capsule,delayed release(DR/EC) 30 mg PO DAILY hydrochlorothiazide 25 mg tablet 25 mg PO DAILY albuterol sulfate 90 mcg/actuation HFA aerosol inhaler 1 puff inhalation Q4H PRN Follow-up/Referrals: JemimaCynthia M.D. [Primary Care Provider] - 3 Days Time of Disposition: 16:52
[2025-09-01 16:42] VITALS: BP 124/75; PULSE 82; RESP 18; TEMP 37.2; O2SAT 97
== END 2025-09-01 17:00 | disposition home or self-care (01) ==
PROVIDERS: Emergency Provider Nurse Practitioner Family; PCP Internal Medicine Infectious Disease
DX: S91.011D Laceration without foreign body, right ankle, subsequent encounter (principal); X58.XXXD Exposure to other specified factors, subsequent encounter; Z21 Asymptomatic human immunodeficiency virus [HIV] infection status; K21.9 Gastro-esophageal reflux disease without esophagitis; M19.90 Unspecified osteoarthritis, unspecified site; F41.9 Anxiety disorder, unspecified; F12.90 Cannabis use, unspecified, uncomplicated; Z93.3 Colostomy status
CPT/HCPCS: 99211; G0463